=== PATIENT | male | born 1955 | race African-American/Black ===

== ENCOUNTER 2017-09-01 10:20 | Observation (INO) | payer BC, MEDICAID ==
[~2017-09-01] VITALS: Ht 177.8 cm; Wt 100.7 kg
[~2017-09-01 10:20] MED LIST: AMLO10TA4 PO; DOCU-138 PO; SIMV40TA2 PO; TAMS-11 PO
[2017-09-01] MEDS ORDERED: SODIUM CHLORIDE 0.9% 1,000 ML IV ONE (10:40)
[2017-09-01] MEDS ORDERED: MECLIZINE 25MG TABLET PO ONE (10:45)
[2017-09-01 11:33] LABS: HEMATOCRIT. 43.2 % (42.0-52.0); HEMOGLOBIN. 13.5 g/dL (14.0-18.0); MEAN CORPUSCULAR HEMOGLOBIN 22.3 pg (28.0-32.0); MEAN CORPUSCULAR VOLUME 71.3 fL (80.0-94.0); MEAN PLATELET VOLUME 6.7 fl (7.4-10.4); PLATELET 370 x1000/uL (130-400); RED BLOOD CELL COUNT 6.06 mill/uL (4.7-6.1); RED CELL DISTRIBUTION WIDTH 16.1 % (11.6-14.6)
[2017-09-01 11:40] LABS: PARTIAL THROMBOPLASTIN TIME 30.4 sec (23.4-31.0); PROTHROMBIN TIME 10.2 sec (9.4-11.6)
[2017-09-01 11:46] LABS: CHLORIDE 101 mEq/L (98-107); CREATINE KINASE MB FRACTION 3.1 ng/mL (0.5-3.6); TROPONIN I < 0.02 ng/mL (0.00-0.04)
[2017-09-01] MEDS ORDERED: POTASSIUM CHLORIDE 20MEQ TABLET SR PO ONE (12:15)
[2017-09-01] MEDS ORDERED: ASPIRIN 325MG EC TABLET PO ONE (12:15)
[2017-09-01 12:20] LABS: PLATELET ESTIMATE NORMAL
[2017-09-01] MEDS ORDERED: TAMSULOSIN HCL 0.4MG SR CAPSULE PO SCH (21:00)
[2017-09-01 22:02] VITALS: BP 132/82
[2017-09-01 22:14] VITALS: BP 132/82
[2017-09-01] MEDS ORDERED: MECLIZINE 25MG TABLET PO PRN (22:45)
[2017-09-01] MEDS ORDERED: POTASSIUM CHLORIDE 20MEQ TABLET SR PO NR (22:45)
[2017-09-01] MEDS ORDERED: ACETAMINOPHEN 325MG TABLET PO PRN (22:45)
[2017-09-01] MEDS ORDERED: ENOXAPARIN 30MG/0.3ML SYR SUBCUT SCH (23:00)
[2017-09-02] VITALS: BP 98/68
[2017-09-02 04:00] VITALS: BP 131/91
[2017-09-02] MEDS: SODIUM CHLORIDE 0.9% INJ 3ML FLUSH IVF SCH ×2 (06:16→14:25)
[2017-09-02 06:22] LABS: HEMATOCRIT. 40.3 % (42.0-52.0); HEMOGLOBIN. 12.8 g/dL (14.0-18.0); MEAN CORPUSCULAR HEMOGLOBIN 22.5 pg (28.0-32.0); MEAN CORPUSCULAR VOLUME 71.1 fL (80.0-94.0); PLATELET 356 x1000/uL (130-400); RED BLOOD CELL COUNT 5.67 mill/uL (4.7-6.1); RED CELL DISTRIBUTION WIDTH 16.1 % (11.6-14.6)
[2017-09-02 06:31] LABS: CHLORIDE 106 mEq/L (98-107)
[2017-09-02 08:00] VITALS: BP 139/83
[2017-09-02] MEDS ORDERED: AMLODIPINE 10MG TABLET PO SCH (09:00)
[2017-09-02] MEDS ORDERED: DOCUSATE SODIUM 100MG CAPSULE PO SCH (09:00)
[2017-09-02] MEDS ORDERED: ENOXAPARIN 30MG/0.3ML SYR SUBCUT SCH (09:00)
[2017-09-02] MEDS ORDERED: PNEUMOCOCCAL 23-VAL P-SAC VAC 0.5 ML IM ONE (10:00)
[2017-09-02 12:00] VITALS: BP 113/80
[2017-09-02 14:43] LABS: PLATELET ESTIMATE NORMAL
[2017-09-02 16:00] VITALS: BP 117/63
[2017-09-02 16:25] VITALS: BP 117/63
[2017-09-02] MEDS ORDERED: ATORVASTATIN CALCIUM 40MG TABLET PO SCH (21:00)
== END 2017-09-02 17:32 | disposition home or self-care (01) ==
LOC: ER 10:37 → EDBEDREQ 10:44 → 5WST 12:34 → INTOOBSV 12:34 → EDBEDREQTM 12:37 → EDBEDREQ 12:37 → ENRESERV 19:29
PROVIDERS: ADMIT Internal Medicine; ATTEND Internal Medicine
DX: R42 Dizziness and giddiness (principal); I10 Essential (primary) hypertension; N40.0 Benign prostatic hyperplasia without lower urinary tract symptoms; E87.6 Hypokalemia; Z86.73 Personal history of transient ischemic attack (TIA), and cerebral infarction without residual deficits; Z79.01 Long term (current) use of anticoagulants; Z23 Encounter for immunization
CPT/HCPCS: 36415; 70450; 70551; 71045; 80048; 80053; 82553; 84484; 85007; 85025; 85027; 85610; 85730; 90471; 93005; 96360; 96361; 96372; 99285; G0378; J1650; J7030; 90732; J8597

== ENCOUNTER 2017-09-22 15:55 | Inpatient (IN) | payer BC, MEDICAID ==
[~2017-09-22] VITALS: Ht 180.3 cm; Wt 109.8 kg
[2017-09-22 17:19] LABS: BASOPHILS % 0.6 % (0.0-2.0); EOSINOPHILS % 6.6 % (0.0-5.0); HEMATOCRIT. 40.8 % (42.0-52.0); HEMOGLOBIN. 13.1 g/dL (14.0-18.0); LYMPHOCYTES % 25.3 % (20.0-50.0); MEAN CORPUSCULAR HEMOGLOBIN 23.1 pg (28.0-32.0); MEAN PLATELET VOLUME 7.2 fl (7.4-10.4); NEUTROPHILS % 54.5 % (40.0-76.0); PLATELET 335 x1000/uL (130-400); RED BLOOD CELL COUNT 5.66 mill/uL (4.7-6.1); RED CELL DISTRIBUTION WIDTH 16.2 % (11.6-14.6)
[2017-09-22 17:28] LABS: PROTHROMBIN TIME 10.1 sec (9.4-11.6)
[2017-09-22 17:30] LABS: CHLORIDE 103 mEq/L (98-107)
[2017-09-22 17:37] LABS: TROPONIN I < 0.02 ng/mL (0.00-0.04)
[2017-09-22] MEDS ORDERED: FUROSEMIDE 40MG/4ML VIAL IVP ONE (18:30)
[2017-09-22] MEDS ORDERED: AMPICILLIN SOD/SULBACTAM NA 3 G in SODIUM CHLORIDE 0.9% 100 ML IV SCH (18:30)
[2017-09-22 21:27] VITALS: BP 117/82
[2017-09-22 22:00] VITALS: BP 117/82
[2017-09-22] MEDS ORDERED: ACETAMINOPHEN 325MG TABLET PO PRN (22:15)
[2017-09-23] VITALS: BP 117/74
[2017-09-23] MEDS: ENOXAPARIN 30MG/0.3ML SYR SUBCUT SCH ×3 (00:06→22:03)
[2017-09-23] MEDS: PIPERACILLIN/TAZ 3.375G PREMIX 50 ML IV SCH ×4 (00:06→21:18)
[2017-09-23 04:00] VITALS: BP 129/64
[2017-09-23] MEDS: PANTOPRAZOLE 40MG DR TABLET PO SCH (06:42)
[2017-09-23 07:42] LABS: CHLORIDE 103 mEq/L (98-107)
[2017-09-23 08:00] VITALS: BP 142/72
[2017-09-23 08:07] LABS: BASOPHILS % 0.5 % (0.0-2.0); HEMATOCRIT. 39.9 % (42.0-52.0); HEMOGLOBIN. 12.2 g/dL (14.0-18.0); LYMPHOCYTES % 16.7 % (20.0-50.0); MEAN CORPUSCULAR HEMOGLOBIN 22.2 pg (28.0-32.0); MEAN CORPUSCULAR VOLUME 72.5 fL (80.0-94.0); MEAN PLATELET VOLUME 7.1 fl (7.4-10.4); MONOCYTES % 13.2 % (2.0-8.0); NEUTROPHILS % 64.6 % (40.0-76.0); PLATELET 342 x1000/uL (130-400); RED BLOOD CELL COUNT 5.51 mill/uL (4.7-6.1); RED CELL DISTRIBUTION WIDTH 16.1 % (11.6-14.6)
[2017-09-23] MEDS: AMLODIPINE 10MG TABLET PO SCH (08:41)
[2017-09-23] MEDS ORDERED: ENOXAPARIN 40MG/0.4ML SYR SUBCUT SCH (09:00)
[2017-09-23] MEDS ORDERED: REGADENOSON 0.4 MG/5 ML IV ONE (11:28)
[2017-09-23 12:00] VITALS: BP 118/73
[2017-09-23 16:00] VITALS: BP 109/65
[2017-09-23 20:00] VITALS: BP 164/97
[2017-09-23] MEDS: SILVER SULFADIAZINE 1% CREAM 50GM TOP SCH (21:32)
[2017-09-23 21:51] LABS: CLARITY URINE TURBID (CLEAR); COLOR URINE YELLOW (YELLOW); KETONES URINE NEGATIVE (NEGATIVE); LEUKOCYTE ESTERASE URINE NEGATIVE (NEGATIVE); NITRITE URINE NEGATIVE (NEGATIVE); OCCULT BLOOD URINE NEGATIVE (NEGATIVE); PH URINE 8.5 (4.5-8.0); PROTEIN URINE 1+ (NEGATIVE); SPECIFIC GRAVITY URINE 1.016 (1.005-1.030)
[2017-09-24] VITALS: BP 108/64
[2017-09-24] MEDS: PIPERACILLIN/TAZ 3.375G PREMIX 50 ML IV SCH ×4 (03:57→21:06)
[2017-09-24 04:00] VITALS: BP 120/71
[2017-09-24 07:18] LABS: BASOPHILS % 0.5 % (0.0-2.0); EOSINOPHILS % 3.7 % (0.0-5.0); HEMATOCRIT. 37.5 % (42.0-52.0); HEMOGLOBIN. 11.7 g/dL (14.0-18.0); LYMPHOCYTES % 14.3 % (20.0-50.0); MEAN CORPUSCULAR HEMOGLOBIN 22.1 pg (28.0-32.0); MEAN CORPUSCULAR VOLUME 70.9 fL (80.0-94.0); MEAN PLATELET VOLUME 6.9 fl (7.4-10.4); MONOCYTES % 11.2 % (2.0-8.0); NEUTROPHILS % 70.3 % (40.0-76.0); PLATELET 401 x1000/uL (130-400); RED BLOOD CELL COUNT 5.29 mill/uL (4.7-6.1)
[2017-09-24 07:28] LABS: CHLORIDE 103 mEq/L (98-107)
[2017-09-24] MEDS: PANTOPRAZOLE 40MG DR TABLET PO SCH (07:28)
[2017-09-24 08:00] VITALS: BP 107/69
[2017-09-24] MEDS: AMLODIPINE 10MG TABLET PO SCH (09:00)
[2017-09-24] MEDS ORDERED: LIDOCAINE HCL/PF 1% 10 MG/ML 5ML VIAL ONE (09:19)
[2017-09-24] MEDS: SILVER SULFADIAZINE 1% CREAM 50GM TOP SCH (10:19)
[2017-09-24] MEDS: ENOXAPARIN 30MG/0.3ML SYR SUBCUT SCH (12:19)
[2017-09-24 12:52] VITALS: BP 104/70
[2017-09-24] MEDS ORDERED: SODIUM BICARBONATE 4% (2.4MEQ) 5ML VIAL IV ONE (13:57)
[2017-09-24] MEDS ORDERED: LIDOCAINE HCL 1% 20ML VIAL (Pyxis) INJ ONE (14:15)
[2017-09-24 16:00] VITALS: BP 134/84
[2017-09-24 20:00] VITALS: BP 117/67
[2017-09-25] VITALS: BP 145/83
[2017-09-25] MEDS: ENOXAPARIN 30MG/0.3ML SYR SUBCUT SCH ×2 (02:01→10:36)
[2017-09-25 04:00] VITALS: BP 132/77
[2017-09-25] MEDS: PIPERACILLIN/TAZ 3.375G PREMIX 50 ML IV SCH ×3 (04:36→16:47)
[2017-09-25] MEDS: PANTOPRAZOLE 40MG DR TABLET PO SCH (06:46)
[2017-09-25 07:42] LABS: BASOPHILS % 0.4 % (0.0-2.0); EOSINOPHILS % 3.8 % (0.0-5.0); HEMATOCRIT. 37.9 % (42.0-52.0); LYMPHOCYTES % 15.5 % (20.0-50.0); MEAN CORPUSCULAR HEMOGLOBIN 22.6 pg (28.0-32.0); MEAN PLATELET VOLUME 6.8 fl (7.4-10.4); MONOCYTES % 10.8 % (2.0-8.0); NEUTROPHILS % 69.5 % (40.0-76.0); PLATELET 386 x1000/uL (130-400); RED BLOOD CELL COUNT 5.34 mill/uL (4.7-6.1); RED CELL DISTRIBUTION WIDTH 16.1 % (11.6-14.6)
[2017-09-25 08:00] VITALS: BP 114/72
[2017-09-25 08:00] LABS: CHLORIDE 104 mEq/L (98-107)
[2017-09-25] MEDS: SILVER SULFADIAZINE 1% CREAM 50GM TOP SCH (10:04)
[2017-09-25 12:00] VITALS: BP 111/73
[2017-09-25 14:28] VITALS: BP 111/73
== END 2017-09-25 19:27 | disposition home or self-care (01) | DRG 602 ==
LOC: ER 16:32 → 6EST 19:06 → EDBEDREQ 19:11 → EDBEDREQSVC 19:11 → ENRESERV 19:47
PROVIDERS: ADMIT Internal Medicine; ATTEND Internal Medicine
PROC: 02HV33Z Insertion of Infusion Device into Superior Vena Cava, Percutaneous Approach (ICD-10-PCS; principal; 2017-09-24)
PROC: B548ZZA Ultrasonography of Superior Vena Cava, Guidance (ICD-10-PCS; 2017-09-24)
PROC: B5181ZA Fluoroscopy of Superior Vena Cava using Low Osmolar Contrast, Guidance (ICD-10-PCS; 2017-09-24)
DX: L03.116 Cellulitis of left lower limb (principal); R53.2 Functional quadriplegia; D68.59 Other primary thrombophilia; I11.0 Hypertensive heart disease with heart failure; I50.9 Heart failure, unspecified; D64.9 Anemia, unspecified; Z79.899 Other long term (current) drug therapy; Z86.73 Personal history of transient ischemic attack (TIA), and cerebral infarction without residual deficits
CPT/HCPCS: 36415; 36569; 71045; 76937; 77001; 80048; 80053; 81003; 83880; 84484; 85025; 85610; 87040; 87070; 87077; 87205; 93005; 93970; 96365; 96375; 97110; 97162; 97530; 99285; A6261; C1725; J0295; J1650; J1940; J2543; J2785; J3490; J7050

== ENCOUNTER 2017-09-29 09:03 | Emergency (ER) | payer BC, MEDICAID ==
[~2017-09-29] VITALS: Ht 180.3 cm; Wt 100.0 kg
[2017-09-29 09:38] VITALS: BP 108/75
[2017-09-29] MEDS ORDERED: LIDOCAINE HCL 1% 20ML VIAL (Pyxis) INJ ONE (10:13)
== END 2017-09-29 15:36 | disposition home or self-care (01) ==
LOC: ER 14:16
DX: T82.898A Other specified complication of vascular prosthetic devices, implants and grafts, initial encounter (principal); L03.116 Cellulitis of left lower limb; I11.9 Hypertensive heart disease without heart failure; Z86.73 Personal history of transient ischemic attack (TIA), and cerebral infarction without residual deficits; Y83.8 Other surgical procedures as the cause of abnormal reaction of the patient, or of later complication, without mention of misadventure at the time of the procedure; Y92.018 Other place in single-family (private) house as the place of occurrence of the external cause
CPT/HCPCS: 36569; 76937; 77001; 99285; C1725; J3490

== ENCOUNTER 2018-01-08 10:51 | Emergency (ER) | payer BC, OTHER ==
[~2018-01-08] VITALS: Ht 180.3 cm; Wt 100.0 kg
[2018-01-08] MEDS ORDERED: MUPIROCIN 2% CREAM 15GM TOP STA (14:43)
[2018-01-08 19:29] VITALS: BP 146/95
== END 2018-01-08 20:41 | disposition home or self-care (01) ==
LOC: ER 12:16
DX: R60.0 Localized edema (principal); L97.929 Non-pressure chronic ulcer of unspecified part of left lower leg with unspecified severity; L97.919 Non-pressure chronic ulcer of unspecified part of right lower leg with unspecified severity; I69.30 Unspecified sequelae of cerebral infarction; I11.9 Hypertensive heart disease without heart failure; Z99.3 Dependence on wheelchair
CPT/HCPCS: 93970; 99284

== ENCOUNTER 2018-01-25 06:48 | Emergency (ER) | payer BC, OTHER ==
[~2018-01-25] VITALS: Ht 177.8 cm; Wt 104.0 kg
[2018-01-25] MEDS ORDERED: SODIUM CHLORIDE 0.9% 1,000 ML IV ONE (08:14)
[2018-01-25 09:28] LABS: BASOPHILS % 0.8 % (0.0-2.0); EOSINOPHILS % 4.2 % (0.0-5.0); HEMATOCRIT. 39.8 % (42.0-52.0); HEMOGLOBIN. 12.7 g/dL (14.0-18.0); LYMPHOCYTES % 25.1 % (20.0-50.0); MEAN CORPUSCULAR HEMOGLOBIN 22.8 pg (28.0-32.0); MEAN CORPUSCULAR VOLUME 71.4 fL (80.0-94.0); MEAN PLATELET VOLUME 7.3 fl (7.4-10.4); NEUTROPHILS % 59.9 % (40.0-76.0); PLATELET 331 x1000/uL (130-400); RED BLOOD CELL COUNT 5.58 mill/uL (4.7-6.1); RED CELL DISTRIBUTION WIDTH 16.3 % (11.6-14.6)
[2018-01-25 09:31] LABS: CHLORIDE 106 mEq/L (98-107)
[2018-01-25 11:05] VITALS: BP 170/69
== END 2018-01-25 11:20 | disposition home or self-care (01) ==
LOC: ER 07:34
DX: R19.7 Diarrhea, unspecified (principal); I10 Essential (primary) hypertension; Z86.73 Personal history of transient ischemic attack (TIA), and cerebral infarction without residual deficits; Z98.890 Other specified postprocedural states; Z98.1 Arthrodesis status
CPT/HCPCS: 36415; 80053; 85025; 86850; 86900; 86901; 96360; 99284; J7030; A4315

== ENCOUNTER 2018-06-23 13:45 | Inpatient (IN) | payer BC, MEDICAID ==
[~2018-06-23] VITALS: Ht 180.3 cm; Wt 98.9 kg
[2018-06-23] MEDS ORDERED: PANTOPRAZOLE SODIUM 40 MG/VIAL IV ONE (16:00)
[2018-06-23] MEDS ORDERED: VANCOMYCIN 1 G PREMIX 200 ML IV ONE (16:00)
[2018-06-23] MEDS ORDERED: PIPERACILLIN/TAZ 3.375G PREMIX 50 ML IV ONE (16:00)
[2018-06-23 16:49] LABS: BASOPHILS % 0.5 % (0.0-2.0); EOSINOPHILS % 2.2 % (0.0-5.0); HEMATOCRIT. 33.9 % (42.0-52.0); HEMOGLOBIN. 10.5 g/dL (14.0-18.0); LYMPHOCYTES % 20.8 % (20.0-50.0); MEAN CORPUSCULAR HEMOGLOBIN 22.7 pg (28.0-32.0); MEAN CORPUSCULAR VOLUME 73.1 fL (80.0-94.0); MEAN PLATELET VOLUME 6.2 fl (7.4-10.4); MONOCYTES % 10.2 % (2.0-8.0); NEUTROPHILS % 66.3 % (40.0-76.0); PLATELET 634 x1000/uL (130-400); RED BLOOD CELL COUNT 4.63 mill/uL (4.7-6.1); RED CELL DISTRIBUTION WIDTH 17.6 % (11.6-14.6)
[2018-06-23 16:53] LABS: CHLORIDE 103 mEq/L (98-107)
[2018-06-23 16:55] LABS: PARTIAL THROMBOPLASTIN TIME 29.9 sec (23.4-31.0); PROTHROMBIN TIME 9.9 sec (9.1-11.1)
[2018-06-23 16:57] LABS: ETHANOL BLOOD < 10 mg/dL
[2018-06-23 18:17] LABS: CLARITY URINE CLEAR (CLEAR); COLOR URINE YELLOW (YELLOW); KETONES URINE NEGATIVE (NEGATIVE); LEUKOCYTE ESTERASE URINE NEGATIVE (NEGATIVE); NITRITE URINE NEGATIVE (NEGATIVE); OCCULT BLOOD URINE NEGATIVE (NEGATIVE); PROTEIN URINE NEGATIVE (NEGATIVE); SPECIFIC GRAVITY URINE 1.015 (1.005-1.030)
[2018-06-23 18:30] LABS: *AMPHETAMINES SCREEN URINE NEGATIVE (NEGATIVE); *BARBITURATES SCREEN URINE NEGATIVE (NEGATIVE); *COCAINE SCREEN URINE NEGATIVE (NEGATIVE)
[2018-06-23 18:31] LABS: *BENZODIAZEPINES SCREEN URINE NEGATIVE (NEGATIVE); CANNABINOID URINE SCREEN NEGATIVE (NEGATIVE); METHADONE URINE SCREEN NEGATIVE (NEGATIVE); OPIATES URINE SCREEN NEGATIVE (NEGATIVE); PHENCYCLIDINE URINE SCREEN NEGATIVE (NEGATIVE)
[2018-06-23 21:55] VITALS: BP 127/59
[2018-06-23 22:00] VITALS: BP 127/59
[2018-06-24] VITALS (11 sets, daily range): BP systolic 96–136; BP diastolic 62–87
[2018-06-24] MEDS ORDERED: HYDROCODONE/ACETAMINOPHEN 5/325MG TABLET PO PRN
[2018-06-24] MEDS ORDERED: PIPERACILLIN/TAZ 3.375G PREMIX 50 ML IV SCH
[2018-06-24] MEDS ORDERED: ONDANSETRON HCL 4MG/2ML INJ IV PRN
[2018-06-24] MEDS: DEXT 5%/0.45% NACL 1000ML 1,000 ML IV SCH ×2 (00:24→14:17)
[2018-06-24] MEDS ORDERED: VANCOMYCIN 1 G PREMIX 200 ML IV SCH (02:00)
[2018-06-24] MEDS: PIPERACILLIN/TAZ 3.375G PREMIX 50 ML IV SCH ×3 (02:10→18:03)
[2018-06-24 05:50] LABS: BASOPHILS % 0.8 % (0.0-2.0); EOSINOPHILS % 2.8 % (0.0-5.0); HEMATOCRIT. 28.6 % (42.0-52.0); HEMOGLOBIN. 9.2 g/dL (14.0-18.0); LYMPHOCYTES % 23.6 % (20.0-50.0); MEAN CORPUSCULAR HEMOGLOBIN 23.2 pg (28.0-32.0); MEAN CORPUSCULAR VOLUME 72.3 fL (80.0-94.0); MEAN PLATELET VOLUME 6.1 fl (7.4-10.4); MONOCYTES % 9.7 % (2.0-8.0); NEUTROPHILS % 63.1 % (40.0-76.0); PLATELET 536 x1000/uL (130-400); RED BLOOD CELL COUNT 3.96 mill/uL (4.7-6.1); RED CELL DISTRIBUTION WIDTH 17.5 % (11.6-14.6)
[2018-06-24 05:59] LABS: CHLORIDE 105 mEq/L (98-107)
[2018-06-24 06:09] LABS: LDL CHOLESTEROL 120 mg/dL (5-100)
[2018-06-24 06:11] LABS: HDL CHOLESTEROL 38 mg/dL (40-59); T4 FREE 0.91 ng/dL (0.76-1.46)
[2018-06-24] MEDS: AMLODIPINE 10MG TABLET PO SCH (08:36)
[2018-06-24] MEDS ORDERED: PANTOPRAZOLE SODIUM 40 MG/VIAL IV SCH (09:00)
[2018-06-24 16:32] LABS: TOTAL IRON BINDING CAPACITY 371 ug/dL (250-450)
[2018-06-24 16:51] LABS: FOLIC ACID (FOLATE) SERUM 11.4 ng/mL (>5.38)
[2018-06-24] MEDS ORDERED: BISACODYL 10MG SUPP PR PRN (17:15)
[2018-06-24] MEDS ORDERED: NA PHOS,M-B/NA PHOS,DI-BA ENEMA 118ML PR NR (17:15)
[2018-06-24] MEDS ORDERED: BISACODYL 5MG TABLET PO PRN (17:15)
[2018-06-24] MEDS ORDERED: LACTULOSE 20G/30ML UDC PO NR (17:15)
[2018-06-24] MEDS: PANTOPRAZOLE SODIUM 40 MG/VIAL IV SCH (17:23)
[2018-06-24 17:56] LABS: HEMATOCRIT 30.9 % (42.0-52.0); HEMOGLOBIN 9.6 g/dL (14.0-18.0)
[2018-06-24] MEDS: DOCUSATE SODIUM 250MG CAPSULE PO SCH (18:02)
[2018-06-24] MEDS: VANCOMYCIN 1250MG in DEXTROSE 5% WATER 250ML IV SCH (18:03)
[2018-06-24 23:41] LABS: HEMATOCRIT 29.7 % (42.0-52.0); HEMOGLOBIN 9.3 g/dL (14.0-18.0)
[2018-06-25] VITALS (12 sets, daily range): BP systolic 98–140; BP diastolic 54–90
[2018-06-25] MEDS: PIPERACILLIN/TAZ 3.375G PREMIX 50 ML IV SCH ×3 (02:00→17:18)
[2018-06-25] MEDS: DEXT 5%/0.45% NACL 1000ML 1,000 ML IV SCH ×2 (04:21→17:18)
[2018-06-25 07:43] LABS: HEMATOCRIT 29.7 % (42.0-52.0); HEMOGLOBIN 9.5 g/dL (14.0-18.0); MEAN CORPUSCULAR HEMOGLOBIN 23.2 pg (28.0-32.0); MEAN CORPUSCULAR VOLUME 72.9 fL (80.0-94.0); PLATELET 529 x1000/uL (130-400); RED BLOOD CELL COUNT 4.07 mill/uL (4.7-6.1); RED CELL DISTRIBUTION WIDTH 17.3 % (11.6-14.6)
[2018-06-25 08:01] LABS: CHLORIDE 106 mEq/L (98-107)
[2018-06-25] MEDS: PANTOPRAZOLE SODIUM 40 MG/VIAL IV SCH (08:40)
[2018-06-25] MEDS ORDERED: SODIUM CHLORIDE 0.9% 10ML VIAL ONE (10:34)
[2018-06-25] MEDS ORDERED: SIMETHICONE 40 MG/0.6 ML 30ML ONE (10:34)
[2018-06-25] MEDS ORDERED: OMEPRAZOLE 20MG CAPSULE EXTENDED RELEASE PO NR (11:00)
[2018-06-25] MEDS ORDERED: MIDAZOLAM HCL 5 MG/5 ML VIAL ONE (11:07)
[2018-06-25] MEDS ORDERED: FENTANYL CITRATE/PF 50MCG/ML 2ML VIAL ONE (11:08)
[2018-06-25] MEDS ORDERED: MIDAZOLAM HCL 5 MG/5 ML VIAL IV PRN (11:11)
[2018-06-25] MEDS: VANCOMYCIN 1250MG in DEXTROSE 5% WATER 250ML IV SCH (13:06)
[2018-06-25] MEDS: DOCUSATE SODIUM 250MG CAPSULE PO SCH (13:06)
[2018-06-25] MEDS: AMLODIPINE 10MG TABLET PO SCH (13:07)
[2018-06-25] MEDS: SUCRALFATE 1 G/10 ML UDC PO SCH (21:00)
[2018-06-26] VITALS (12 sets, daily range): BP systolic 66–147; BP diastolic 29–92
[2018-06-26] MEDS: PIPERACILLIN/TAZ 3.375G PREMIX 50 ML IV SCH ×3 (02:00→18:37)
[2018-06-26] MEDS: SUCRALFATE 1 G/10 ML UDC PO SCH ×4 (05:49→20:50)
[2018-06-26] MEDS: OMEPRAZOLE 20MG CAPSULE EXTENDED RELEASE PO SCH (05:55)
[2018-06-26] MEDS: VANCOMYCIN 1250MG in DEXTROSE 5% WATER 250ML IV SCH (05:55)
[2018-06-26 07:17] LABS: HEMOGLOBIN 9.5 g/dL (14.0-18.0); MEAN CORPUSCULAR VOLUME 72.6 fL (80.0-94.0); PLATELET 538 x1000/uL (130-400); RED BLOOD CELL COUNT 4.14 mill/uL (4.7-6.1); RED CELL DISTRIBUTION WIDTH 16.7 % (11.6-14.6)
[2018-06-26 07:22] LABS: CHLORIDE 106 mEq/L (98-107)
[2018-06-26 07:30] LABS: VANCOMYCIN TROUGH 9.3 ug/mL (5.0-10.0)
[2018-06-26] MEDS: DOCUSATE SODIUM 250MG CAPSULE PO SCH (10:46)
[2018-06-26] MEDS: FERROUS SULFATE 325MG TABLET PO SCH ×3 (10:46→18:37)
[2018-06-26] MEDS: AMLODIPINE 10MG TABLET PO SCH (10:48)
[2018-06-26 12:20] LABS: BG BASE EXCESS 2.5 mmol/L (-2.0-2.0); BG CARBOXYHEMOGLOBIN 0.7 % (0.5-1.5); BG DEOXYHEMOGLOBIN 5.8 % (0.0-5.0); BG FRACTION INSPIRED OXYGEN 21; BG HCO3 ACT 26.7 mmol/L (22.0-26.0); BG METHEMOGLOBIN 0.2 % (0.0-1.5); BG OXYGEN SATURATION 94.1 % (92.0-98.5); BG OXYHEMOGLOBIN 93.3 % (94.0-97.0); BG PH 7.443 (7.350-7.450); BG PO2 67.7 mmHg (75.0-100.0); BG SAMPLE SITE RIGHT RADIAL; BG TOTAL HEMOGLOBIN 10.2 g/dL (12.0-18.0); BG VENT MODE ROOM AIR
[2018-06-26] MEDS ORDERED: VANCOMYCIN 1500MG in DEXTROSE 5% WATER 250ML IV SCH (21:00)
[2018-06-27] VITALS: BP 129/71
[2018-06-27 02:00] VITALS: BP 111/70
[2018-06-27] MEDS: PIPERACILLIN/TAZ 3.375G PREMIX 50 ML IV SCH (02:28)
[2018-06-27 04:00] VITALS: BP 127/83
[2018-06-27 06:00] VITALS: BP 123/73
[2018-06-27] MEDS: OMEPRAZOLE 20MG CAPSULE EXTENDED RELEASE PO SCH (06:20)
[2018-06-27] MEDS: SUCRALFATE 1 G/10 ML UDC PO SCH (06:20)
[2018-06-27 07:50] VITALS: BP 123/77
== END 2018-06-27 10:00 | disposition home or self-care (01) | DRG 602 ==
LOC: ER 14:37 → EDBEDREQ 16:03 → 5EST 17:45 → EDBEDREQTM 17:45 → ENRESERV 20:31
PROVIDERS: ADMIT Internal Medicine; ATTEND Internal Medicine
PROC: 0DB68ZX Excision of Stomach, Via Natural or Artificial Opening Endoscopic, Diagnostic (ICD-10-PCS; principal; 2018-06-25 11:30)
DX: L03.115 Cellulitis of right lower limb (principal); K26.4 Chronic or unspecified duodenal ulcer with hemorrhage; D68.59 Other primary thrombophilia; I69.354 Hemiplegia and hemiparesis following cerebral infarction affecting left non-dominant side; L97.919 Non-pressure chronic ulcer of unspecified part of right lower leg with unspecified severity; D50.9 Iron deficiency anemia, unspecified; E66.9 Obesity, unspecified; E78.5 Hyperlipidemia, unspecified; R59.0 Localized enlarged lymph nodes; R79.89 Other specified abnormal findings of blood chemistry; I10 Essential (primary) hypertension; K29.60 Other gastritis without bleeding; K44.9 Diaphragmatic hernia without obstruction or gangrene; K56.41 Fecal impaction; N40.0 Benign prostatic hyperplasia without lower urinary tract symptoms; Z87.11 Personal history of peptic ulcer disease; Z99.3 Dependence on wheelchair; Z68.30 Body mass index [BMI] 30.0-30.9, adult; Z79.899 Other long term (current) drug therapy
CPT/HCPCS: 36415; 36600; 71045; 73590; 73700; 74176; 80048; 80061; 80202; 80305; 82270; 82375; 82607; 82728; 82746; 82805; 83540; 83550; 83605; 83880; 84145; 84153; 84439; 84443; 84484; 85014; 85018; 85027; 86677; 86850; 86900; 93005; 93306; 93923; 93970; 96365; 96366; 96368; 96375; 97162; 97530; 99291; A4216; C9113; G0482; J2250; J2543; J3010; J3370; J3490; J7060; G0103